=== PATIENT | male | born 2000 | race Caucasian/White ===

== ENCOUNTER 2024-11-07 06:10 | Emergency (ER) | payer OTHER, SELFPAY ==
[2024-11-07 06:12] VITALS: BP 126/92
[2024-11-07 06:42] VITALS: BMI 14.7
[2024-11-07 07:07] LABS: % Basophils 0.2 % (0-2); % Immature Granulocytes 0.9 % (0-0.5); % Lymphocytes 2.3 % (20.5-51.1); % Monocytes 10.5 % (1.7-9.3); % Neutrophils 86.1 % (42.2-75.2); Absolute Immature Granulocytes 0.1 10^3/uL (0-0.05); Absolute Lymphocytes 0.2 10^3/uL (1.2-3.4); Absolute Monocytes 0.9 10^3/uL (0.1-0.6); Absolute Neutrophils 7.6 10^3/uL (1.4-6.5); Hematocrit 43.7 % (39.0-52.0); Hemoglobin 15.3 g/dL (13.0-18.0); Mean Corpuscular Hgb 32.1 pg (27.0-31.0); Mean Corpuscular Volume 91.6 fL (80.0-94.0); Mean Platelet Volume 10.6 fL (7.4-10.4); Nucleated Red Blood Cells % 0 % (-); Platelet Count 230 10^3/uL (130-400); Red Blood Cell Count 4.77 10^6/uL (4.70-6.10); Red Cell Dist. Width 12.5 % (11.5-14.5); White Blood Cell Count 8.8 10^3/uL (4.8-10.8)
--- NOTE | 2024-11-07 07:13 | ED.GENMED ---
History of Present Illness
General
Chief Complaint: Flank Pain
Source: patient
Exam Limitations: none
Time Seen by Provider: 11/07/24 07:12
Nursing documentation reviewed up to this point in time: agreed with
History of Present Illness
History of Present Illness:
24 yo male states R flank pain started yesterday and is worsening, nausea, no vomiting. Hx kidney stones. Pain now 05/27
Past History
Past History
ED Past Medical History: Psychiatric and Other (kidney stones)
ED Past Surgical History: None
Social History
Tobacco: Non-smoker
Alcohol: None
Drug: Marijuana
Personal: Single
Living: with family
Employment: Not employed
Family History
Family History: Other (Brother with similar reportedly)
Review of Systems
Review of Systems
Allergies reviewed?: Yes
All Other Systems: ROS reviewed and negative except as documented in HPI and ROS
Constitutional: Denies fever or chills
Respiratory: Denies trouble breathing
Cardiac: Denies chest pain
ABD/GI: Reports nausea; Denies abdominal pain or vomiting
: Reports flank pain (right); Denies frequency or difficulty voiding
Musculoskeletal: Reports no symptoms
Skin: Reports no symptoms
Neurological: Reports no symptoms
Phy Exam
Physical Exam
Physical Exam:
GENERAL: No acute distress. A&Ox3.
CONSTITUTIONAL: Afebrile.
EYES: clear, conjunctivae normal
ENMT: moist mucus membranes, Pharynx nl
RESPIRATORY: Regular respirations, nonlabored, lungs clear.
CARDIOVASCULAR: Regular rate and rhythm, no murmurs, no rubs.
GI: Soft, nontender, normal BS. R flank tenderness
MUSCULOSKELETAL: Moves with ease. Well perfused.
SKIN: Warm, dry, pink
PSYCH: Normal mood and affect. Well kept, interactive and appropriate
NEUROLOGIC: Awake, alert and oriented. No focal neurological deficits
Course
Orders/Labs/Results
Orders:
Orders
11/07/24 06:49
IV Insert/Care/Rem.- Treatment PRN
11/07/24 06:52
Complete Blood Count/With Diff Urgent
Comprehensive Metabolic Panel Urgent
Lipase Urgent
Urinalysis Reflex To Culture Urgent
Date Specimen was Collected: 11/07/24
Time Specimen was Collected: 06:49
11/07/24 07:12
Ketorolac [Toradol] 15 mg IV NOW STA
11/07/24 07:13
CT Abd/pel Without Iv Or Oral Urgent
Comment:
Reason For Exam: R flank pain
11/07/24 07:19
Ondansetron Injectable [Zofran] 4 mg .ROUTE .STK-MED ONE
11/07/24 07:20
0.9% Sodium Chloride 1000 ml [Nss] 1,000 ml IV BOLUS
Ondansetron Injectable [Zofran] 4 mg IV NOW STA
11/07/24 08:28
Acetaminophen [Tylenol] 1,000 mg .ROUTE .STK-MED ONE
11/07/24 08:32
Acetaminophen [Tylenol] 1,000 mg PO NOW STA
Abnormal Lab Results
11/07/24
06:52
MCH 32.1 H pg
(27.0-31.0)
MPV 10.6 H fL
(7.4-10.4)
Abs Immat Gran (auto) 0.1 H 10^3/uL
(0-0.05)
Absolute Neuts (auto) 7.6 H 10^3/uL
(1.4-6.5)
Absolute Lymphs (auto) 0.2 L 10^3/uL
(1.2-3.4)
Absolute Monos (auto) 0.9 H 10^3/uL
(0.1-0.6)
Immature Gran % 0.9 H %
(0-0.5)
Neutrophils % 86.1 H %
(42.2-75.2)
Lymphocytes % 2.3 L %
(20.5-51.1)
Monocytes % 10.5 H %
(1.7-9.3)
Chloride 96 L mmol/L
(98-107)
Glucose 126 H mg/dl
(70-99)
Urine Ketones 3+ A
(Negative)
Urine Urobilinogen 3+ A
(Neg - 1+)
11/07/24 06:52
11/07/24 06:52
Vital Signs
Initial and Last Documented VS:
Initial Vital Signs
Temp Pulse Resp BP Pulse Ox
97.8 F 116 24 126/92 98
11/07/24 06:12 11/07/24 06:12 11/07/24 06:12 11/07/24 06:12 11/07/24 06:12
Last Documented Vital Signs
Temp Pulse Resp BP Pulse Ox
97.8 F 90 20 110/68 98
11/07/24 06:12 11/07/24 08:36 11/07/24 08:36 11/07/24 08:36 11/07/24 08:36
MDM/Problems Addressed
Differential Diagnosis Includes:
kidney/ureteral calculus, UTI, pyelonephritis, constipation
MDM/Problems Addressed:
24 yo male states R flank pain started yesterday and is worsening, nausea, no vomiting. Hx kidney stones. Pain now 8/10
Afebrile
CBC with no clinically significant abnormality
CMP with no clinically significant abnormality
CT abdomen pelvis radiology report read: IMPRESSION:
1. No significant acute abnormality identified in the abdomen or pelvis, within the limits of unenhanced CT, as described above.
9:00 a.m.
In to re evaluate pt, little relief with Toradol. Has h/a so Tylenol given.
OOB, full ROM of spine with no aggravation of pain, however, going from sit to stand and vice versa, aggravates pain in right lower back. Not tender to palpation.
Most likely muscle strain.
Abdomen benign.
Moderate amount of stool noted on CT: will treat for constipation
Lab reports something 'wrong' with U/A equipment. I will notify pt if U/A comes back abnormal
*Critical Care Note
Total Time (30-74mins, 75-104mins- exclusive of procedures): Not Applicable
ED Attending Note
-
Portions of this chart may have been created with voice recognition software.� Occasional wrong word or��sound alike� substitutions may have occurred due to the inherent limitations of voice recognition software.
Discharge Plan
Departure
Patient Disposition: Home (Routine Discharge)
Date of Disposition: 11/07/24
Time of Disposition: 08:54
Patient with high blood pressure during this ER visit?: No
Condition: Good
Discharge Problem:
Low back pain, Constipation
Instructions: Flank Pain (DC), Constipation, Adult ED
Prescriptions:
No Action
ibuprofen 600 mg tablet
600 mg PO QID PRN (Reason: fever or pain) Qty: 20 0RF
ondansetron 4 mg tablet,disintegrating
4 mg PO QID PRN (Reason: nausea and vomiting) Qty: 20 0RF
oxycodone 5 mg tablet
5 mg PO Q4H PRN (Reason: Pain) Qty: 12 0RF
ondansetron 4 mg tablet,disintegrating
4 mg PO TIDPRN PRN (Reason: nausea/vomiting) Qty: 10 0RF
ibuprofen 600 mg tablet
600 mg PO Q6H PRN (Reason: Pain) Qty: 20 0RF
Referrals:
UNKNOWN - PT DOES,NOT KNOW [Family Provider] -
Activity Restrictions/Additional Instructions:
As we discussed, your CT scan shows no sign of kidney stone. You are most likely constipated
Nothing worrisome in your work up here today. There is a significant amount of stool in your bowels.
Seek medical care immediately for fever above 100.4, vomiting more than once in one hour, worsening pain or feeling sicker in any way.
Get a bottle of Magnesium Citrate at your pharmacy today and take the entire bottle. Follow the instructions provided for constipation.
Interventions
Interventions:
*Risk Screen - Suicide Last Done: 11/07/24 06:39
*General Assessment Last Done: 11/07/24 06:39
*Neglect/Abuse Screening Last Done: 11/07/24 06:39
ED- Fall Risk Assessment Last Done: 11/07/24 06:39
*ED COVID-19 Vaccine History Last Done: 11/07/24 06:39
*Nursing Disposition Last Done: 11/07/24 09:25
BO-Nmllnl-Ygmqslulyx Assessment Last Done: 11/07/24 06:39
ED-Male Genitourinary Assessment Last Done: 11/07/24 06:39
Discharge Date and Time
Discharge Date/Time: 11/07/24 09:40
Print Language: [id number]
[2024-11-07] MEDS: TORADOL 15 MG IV (07:21)
[2024-11-07] MEDS: ZOFRAN 4 MG IV (07:21)
[2024-11-07] MEDS: NSS 1000 IV (07:24)
[2024-11-07 07:44] LABS: ALT (SGPT) 19 U/L (0-50); AST (SGOT) 25 U/L (17-59); Alkaline Phosphatase 76 U/L (38-126); Blood Urea Nitrogen 10 mg/dl (9-20); Calcium 9.5 mg/dl (8.4-10.2); Carbon Dioxide 24 mmol/L (22-30); Chloride 96 mmol/L (98-107); Estimated Creatinine Clearance 117 ml/min; Glucose 126 mg/dl (70-99); Lipase 41 U/L (23-300); Potassium 3.8 mmol/L (3.5-5.1); Sodium 135 mmol/L (135-145); Total Bilirubin 0.9 mg/dl (0.2-1.3); Total Protein 7.7 g/dl (6.3-8.2); eGFR > 60.00
[2024-11-07] MEDS: TYLENOL 1000 MG PO (08:32)
[2024-11-07 08:36] VITALS: BP 110/68
[2024-11-07 09:02] LABS: Urine Albumin Trace (Neg - Trace); Urine Bilirubin Negative (Negative); Urine Character Slightly Cloudy (Clear); Urine Color Yellow; Urine Glucose Negative (Negative); Urine Ketone 3+ (Negative); Urine Leukocyte Negative (Negative); Urine Nitrite Negative (Negative); Urine Occult Blood Negative (Negative); Urine Specific Gravity 1.025 (<1.030); Urine Urobilinogen 3+ (Neg - 1+)
== END 2024-11-07 09:40 | disposition home or self-care (01) ==
LOC: EMR 06:10
PROVIDERS: Emergency Medicine; EMERGENCY PHYSICIAN Emergency Medicine
DX: K59.00 Constipation, unspecified (principal); M54.50 Low back pain, unspecified; Z87.442 Personal history of urinary calculi
CPT/HCPCS: 99284; 96374; 96375; 96361; 74176; 80053; 81003; 83690; 85025